=== PATIENT | female | born 1995 | race Caucasian/White ===

== ENCOUNTER 2020-10-31 21:58 | Emergency (ER) | payer OTHER ==
[~2020-10-31] VITALS: Ht 160 cm; Wt 100.0 kg
[2020-10-31 22:45] VITALS: BP 128/86
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
[2020-10-31] MEDS ORDERED: NAPR-682 PO (23:57)
[2020-11-01] MEDS ORDERED: ALBU2.5V8 IH (00:12)
[2020-11-01] MEDS ORDERED: IPRA3AMP29 NEB (00:12)
== END 2020-11-01 00:21 | disposition home or self-care (01) ==
LOC: ER 21:58
DX: S13.9XXA Sprain of joints and ligaments of unspecified parts of neck, initial encounter (principal); Z76.0 Encounter for issue of repeat prescription; V43.52XA Car driver injured in collision with other type car in traffic accident, initial encounter; Y93.I9 Activity, other involving external motion; Y92.828 Other wilderness area as the place of occurrence of the external cause; Y99.8 Other external cause status
CPT/HCPCS: 72040; 81025; 99283

== ENCOUNTER 2021-04-04 02:10 | Emergency (ER) | payer OTHER ==
[~2021-04-04 02:10] MED LIST: ALBU2.5V8 IH; IPRA3AMP29 NEB; NAPR-682 PO
== END 2021-04-04 02:45 | disposition left against medical advice (07) ==
LOC: ER 02:10
DX: R06.02 Shortness of breath (principal); J45.909 Unspecified asthma, uncomplicated; Z53.21 Procedure and treatment not carried out due to patient leaving prior to being seen by health care provider